=== PATIENT | female | born 1995 | race Caucasian/White ===

== ENCOUNTER 2020-04-09 16:17 | Inpatient (IN) | payer OTHER ==
[~2020-04-09] VITALS: Ht 160 cm
[2020-04-09] VITALS (7 sets, daily range): BP systolic 112–132; BP diastolic 69–90
[~2020-04-09 16:17] MED LIST: AUGMENTIN 875 M1 TAB PO; MOTRIN400 MG PO
[2020-04-09 17:59] LABS: BASO # 0.1 10*3/uL (0.0-0.1); BASO % 0.5 % (0.0-1.0); EOS % 0.3 % (1.0-4.0); HEMATOCRIT 39.2 % (37.0-47.0); LYMPH # 1.7 10*3/uL (1.3-4.4); LYMPH % 17.5 % (27.0-41.0); MEAN CELL VOLUME 87.5 fl (81.0-99.0); MEAN CORPUSCULAR HGB 29.7 pg (27.0-31.0); MEAN CORPUSCULAR HGB CONC 33.9 g/dl (33.0-37.0); MEAN PLATELET VOLUME 9.6 fl (9.6-12.3); MONO # 0.4 10*3/uL (0.1-1.0); MONO % 4.3 % (3.0-9.0); NEUT # 7.4 10*3/uL (2.3-7.9); NEUT % 77.1 % (47.0-73.0); PLATELET COUNT AUTOMATED 292 10*3/uL (130-400); RED BLOOD COUNT 4.48 10*6/uL (4.10-5.10); RED CELL DISTRI WIDTH 11.4 % (0-14.5); WHITE BLOOD COUNT 9.6 10*3/uL (4.8-10.8)
[2020-04-09] MEDS ORDERED: OMNICEF300 MG PO (18:02)
[2020-04-09 18:10] LABS: ACT PARTIAL THROMBO TIME 29.3 SECONDS (20.0-32.1); INTERNATIONAL NORM RATIO 0.9 (2.0-3.5)
[2020-04-09 18:15] LABS: ALKALINE PHOSPHATASE 54 U/L (45-117); BUN 11 mg/dl (7-24); CHLORIDE 110 mmol/L (98-107); CREATININE 0.59 mg/dL (0.55-1.02); POTASSIUM 3.6 mmol/L (3.5-5.1); SGOT/AST 7 IU/L (3-35); SGPT/ALT 11 U/L (12-78); SODIUM 142 mmol/L (136-145); TOTAL PROTEIN 7.6 gm/dL (6.4-8.2)
[2020-04-09 18:17] LABS: BETA-HCG, QUANT < 1.0 mIU/mL (1-3)
--- NOTE | 2020-04-09 18:25 | NUR ---
TOOK REPORT FROM MOISE RAMIRES AT THIS TIME. PATIENT TO BE CONSCIOUSLY SEDATED IN ROOM 1.
--- NOTE | 2020-04-09 18:30 | NUR ---
ASSISTED RN AND DETECTIVE SUPERVISOR AT BEDSIDE WITH A CONSCIOUS SEDATION, X30MIN. NO COMPS.
--- NOTE | 2020-04-09 18:40 | NUR ---
PATIENT HAS SIGNED CONSCIOUS SEDATION FORM AND IT HAS BEEN PLACED IN BOX WITH PATIENT CHART.
--- NOTE | 2020-04-09 18:42 | NUR ---
PATIENT BEING HYPEROXYGENATED AT THIS TIME WITH NON REBREATHER AT 15L/MIN. PATIENT ALSO PLACED ONTO DIRECTOR OF ADMISSIONS. RESP IN ROOM. AWAITING FOR DR VALLE.
--- NOTE | 2020-04-09 18:55 | NUR ---
10MG OF ETOMIDATE GIVEN IV PUSH. 10MG OF ETOMIDATE WAS GIVEN PRIOR TO SEDATIOJN SEE EMAR.
--- NOTE | 2020-04-09 18:58 | NUR ---
PATIENT IS AWAKE AT THIS TIME. TOLERATED PROCEDURE WELL. PATIENT DENIES ANY PAIN AT THIS TIME.
--- NOTE | 2020-04-09 19:00 | NUR ---
PULSES PALPATED BY LILA SOTELO AT THIS TIME.
--- NOTE | 2020-04-09 19:50 | NUR ---
PT ARRIVED TO FLOOR FROM ER, IV NS BOLUS INFUSING PER ORDER TO 20G LAC.
[2020-04-09 19:59] LABS: BILIRUBIN NEGATIVE; BLOOD NEGATIVE (NEGATIVE); CLARITY CLEAR (CLEAR); COLOR YELLOW (YELLOW); GLUCOSE NEGATIVE; KETONE NEGATIVE; LEUKO ESTERASE NEGATIVE (NEGATIVE); NITRITE NEGATIVE (NEGATIVE); PH 7.5 (4.5-8.0); SPECIFIC GRAVITY 1.005 (1.001-1.030); UROBILINOGEN 0.2 E.U./dl (0.0-1.0)
--- NOTE | 2020-04-09 20:00 | NUR ---
A 25, admitted to , under the services of ZHANG Cadena DO with a diagnosis of INTRACTABLE PAIN, CLOSE L ANKLE FX. Chief complaint is PAIN TO L LEG. Patient arrived via bed from ER. Monitor applied. Initial assessment completed. Vital signs taken and recorded. ZHANG CADENA DO notified of admission to the unit. Orders received. See assessment for past medical history, medications and allergies. Patient and/or family oriented to unit. [facility] visitation policy reviewed. Clothing/patient valuable form completed. JOHN JENNINGS
--- NOTE | 2020-04-09 20:03 | NUR ---
PT MEDICATED WITH PRN MORPHINE PER ORDER FOR C/O LEFT ANKLE PAIN RATED AN 8/10. WILL MONITOR FOR EFFECTIVENESS.
[2020-04-09] MEDS ORDERED: AFIRMELLE-28 T1 EACH PO (20:16)
[2020-04-09 20:20] LABS: RBC 0-2 rbc/hpf (0-2)
[2020-04-09 20:21] LABS: BACTERIA 2+; EPITHELIAL CELLS 0-2; WBC 0-2 wbc/hpf (0-5)
--- NOTE | 2020-04-09 20:40 | NUR ---
PT RESTING IN BED QUIETLY AT THIS TIME. NO S/S OF DISTRESS NOTED. PRN MORPHINE APPEARS EFFECTIVE.
--- NOTE | 2020-04-09 21:55 | NUR ---
PT REPORTS 7/10 PAIN TO LLE, REPOSIITIONS TO LITTLE EFFECT, NORCO GIVEN. SEE EMAR.
--- NOTE | 2020-04-09 23:11 | NUR ---
Pt instructed on incentive spirometer use. Encouraged pt to use 10 breaths every hour. 1500cc Pt on room air
[2020-04-10] VITALS (10 sets, daily range): BP systolic 99–125; BP diastolic 58–81
--- NOTE | 2020-04-10 01:00 | NUR ---
PT RESTING IN BED, NO DISTRESS NOTED. CALL LIGHT WITHIN REACH. WILL CONTINUE TO MONITOR.
--- NOTE | 2020-04-10 04:37 | NUR ---
PT REQUESTING SOMETHING FOR 8/10 LLE PAIN, PRN MORPHINE GIVEN PER ORDER. SEE EMAR.
--- NOTE | 2020-04-10 05:30 | NUR ---
PT REPORTS MORPHINE EFFECTIVE.
[2020-04-10 06:35] LABS: BASO % 0.6 % (0.0-1.0); EOS % 0.4 % (1.0-4.0); HEMATOCRIT 35.2 % (37.0-47.0); LYMPH # 2.1 10*3/uL (1.3-4.4); LYMPH % 29.3 % (27.0-41.0); MEAN CELL VOLUME 88.9 fl (81.0-99.0); MEAN CORPUSCULAR HGB 30.1 pg (27.0-31.0); MEAN CORPUSCULAR HGB CONC 33.8 g/dl (33.0-37.0); MEAN PLATELET VOLUME 9.7 fl (9.6-12.3); MONO # 0.7 10*3/uL (0.1-1.0); MONO % 9.5 % (3.0-9.0); NEUT # 4.4 10*3/uL (2.3-7.9); NEUT % 59.9 % (47.0-73.0); PLATELET COUNT AUTOMATED 238 10*3/uL (130-400); RED BLOOD COUNT 3.96 10*6/uL (4.10-5.10); RED CELL DISTRI WIDTH 11.3 % (0-14.5); WHITE BLOOD COUNT 7.3 10*3/uL (4.8-10.8)
[2020-04-10 06:38] LABS: ALBUMIN 3.1 gm/dl (3.1-4.5); CHLORIDE 114 mmol/L (98-107); POTASSIUM 3.4 mmol/L (3.5-5.1); SODIUM 140 mmol/L (136-145)
[2020-04-10 06:45] LABS: ALKALINE PHOSPHATASE 46 U/L (45-117); BUN 7 mg/dl (7-24); CHOLESTEROL 104 mg/dL (<200); CREATININE 0.49 mg/dL (0.55-1.02); HDL CHOLESTEROL 60 mg/dl (40-60); LDL CHOLESTEROL 37 mg/dL (9-159); SGOT/AST 14 IU/L (3-35); SGPT/ALT 12 U/L (12-78); TOTAL PROTEIN 6.2 gm/dL (6.4-8.2); TRIGLYCERIDES 34 mg/dl (<150); VLDL CHOLESTEROL 7 mg/dL (6-40)
--- NOTE | 2020-04-10 08:06 | NUR ---
24 HR chart check completed.
[2020-04-10 08:10] LABS: VITAMIN D, 25-HYDROXY 26.2 ng/mL (30-100)
--- NOTE | 2020-04-10 08:26 | NUR ---
MEDICATED WITH IV MORPHINE ORDERED PER PT REQUEST FOR C/O PAIN TO LEFT LEG RATED 8/10.
--- NOTE | 2020-04-10 09:00 | NUR ---
case management attempted to visit with patient, patient out of room for surgery, will visit at a later time
--- NOTE | 2020-04-10 09:30 | NUR ---
MEDICATION EFFECTIVE FOR PAIN.
--- NOTE | 2020-04-10 11:43 | NUR ---
Luis from [facility] called asking for clinicals to start insurance. . Clinicals faxed.
--- NOTE | 2020-04-10 14:17 | NUR ---
REQUESTED COMPRESSION SLEEVE AND SCD'S OFF DURING SURGERY.
--- NOTE | 2020-04-10 15:30 | NUR ---
RESTING COMFORTABLY. LEFT LEG FIXATOR INTACT, DRESSING D/I.
--- NOTE | 2020-04-10 17:00 | NUR ---
DENIES THE NEED FOR PAIN MED AT THIS TIME.
--- NOTE | 2020-04-10 21:05 | NUR ---
PT RESTING IN BED. RESP-EASY AND REGULAR. C/O LEFT LEG/ANKLE PAIN, RATES PAIN 8 ON PAIN SCALE 0-10. MEDICATED WITH MORPHINE IV PER PRN ORDER, SEE EMAR. PT USING INCENTIVE SPIROMETER WHILE IN ROOM. CALL LIGHT IN REACH. IVF INFUSING WITH NO PROBLEM. CALL LIGHT IN REACH. SEE SHIFT ASSESSMENT.
--- NOTE | 2020-04-10 22:00 | NUR ---
PT RESTING IN BED WITH HOB ELEVATED. STATES PAIN WAS EFFECTIVE. CALL LIGHT IN REACH. LEFT FOOT ELEVATED ON PILLOW.
[2020-04-11] VITALS: BP 115/79
--- NOTE | 2020-04-11 00:20 | NUR ---
PT RESTING IN BED. RESP-EASY AND REGULAR. NO C/O AT THIS TIME. CALL LIGHT IN REACH. SEE SHIFT ASSESSMENT.
--- NOTE | 2020-04-11 03:29 | NUR ---
C/O LEFT LEG/FOOT PAIN, RATES PAIN 8 ON PAIN SCALE 0-10. MEDICATED WITH MORPHINE IV PER PRN ORDER, SEE EMAR. LEFT FOOT ELEVATED. TOES WARM TO TOUCH, PT ABLE TO MOVE TOES. CALL LIGHT IN REACH.
--- NOTE | 2020-04-11 04:20 | NUR ---
PT RESTING IN BED. STATES PAIN MEDICATION WAS EFFECTIVE. CALL LIGHT IN REACH. LEFT FOOT UP ON PILLOW.
[2020-04-11 06:59] LABS: BILIRUBIN, DIRECT 0.3 mg/dL (0.0-0.2)
--- NOTE | 2020-04-11 07:43 | NUR ---
24 HR chart check completed.
[2020-04-11 08:00] VITALS: BP 122/73
--- NOTE | 2020-04-11 08:45 | NUR ---
MEDICATED WITH IV MORPHINE ORDER PER PT REQUEST FOR C/O PAIN TO LEFT LOWER LEG S/P ORIF YESTERDAY RATED 04/20.
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
--- NOTE | 2020-04-11 09:57 | NUR ---
MEDICATION NOT EFFECTIVE PT WAS JUST UP WITH PT. REQUESTING ADDITIONAL MEDICATION.
--- NOTE | 2020-04-11 10:00 | NUR ---
MEDICATED WITH PO NORCO ORDERED PER PT REQUEST FOR C/O LOWER LEFT LEG PAIN RATED 9/10.
--- NOTE | 2020-04-11 10:42 | NUR ---
PHYSICAL THERAPY Physical Therapy evaluation completed on 4th floor with full evaluation to follow. Recommend physical therapy per plan of care and Home w family support and follow up HH upon discharge. Thank you for this referral. Anthony Powell SPT Kimber Kinney PT
--- NOTE | 2020-04-11 11:00 | NUR ---
MEDICATION EFFECTIVE FOR PAIN.
[2020-04-11 12:00] VITALS: BP 102/65
--- NOTE | 2020-04-11 12:41 | NUR ---
MEDICATED WITH IV BENEDRYL ORDERED FOR VOMITING IN RADIOLOGY.
--- NOTE | 2020-04-11 13:48 | NUR ---
MEDICATED WITH PO NORCO ORDERED PER PT REQUEST FOR C/O PAIN TO LLE RATED 8/10.
--- NOTE | 2020-04-11 14:15 | NUR ---
PHYSICAL THERAPY TREATMENT TIME: OUT 2:14 PM 15 MINUTES TOTAL PRESENTATION: Patient with ORIF external fixation device on L LE. Patient has minimal pain level in L LE. Edema in L LE and L Foot Patient is bedside chair with IV infusing LEs elevated LE on pillow NWB on L LE COMPLAINTS: Patient says she has minimal to no pain in the L LE. TRANSFERS: STS from bedside low chair: SBA-CGA Stand to sitting in bedside chair: SBA-CGA No verbal cues necessary TREATMENT: Patient performed gait with Wh Walker and CGA to Close Supervision for 56' x 1, maintaining the NWB on the L LE the entire distance. No LOB 1 standing rest break during gait < Seconds Mild SOB Ther ex to the R LE in long sitting in bedside chair L LE - SLR, HEEL SLIDES, HIP ABDUCTION, ANKLE PUMPS X 10 reps each RESPONSE/COMPLAINTS: Patient able to use regular Wh Walker and has no need for Farzad WALKER. Patient is able to maintain NWB on the L LE with Walker. Patient has moderate increased pain with gait. Mild fatigue and Mild SOB with gait. CONCLUSION: Patient SHoulder have ramp to enter and exit home while on the NWB precautions of the L LE. Patient was left in bedside chair with LEs elevated Call light within reach IV infusing [employer] [employer] SALESPERSON
[2020-04-11] MEDS ORDERED: ASPIRIN ADULT L81 M2 PO (14:42)
[2020-04-11] MEDS ORDERED: NORCO 5-325 TA1 EACH PO (14:43)
--- NOTE | 2020-04-11 15:00 | NUR ---
MEDICATION EFFECTIVE FOR PAIN.
--- NOTE | 2020-04-11 15:15 | NUR ---
UNABLE TO PHOTO SURGICAL WOUND D/T DRESSING/APPLIANCE.
[2020-04-11 16:00] VITALS: BP 108/68
--- NOTE | 2020-04-11 16:54 | NUR ---
LEAVING IN CARE OF PA VIA WHEELCHAIR.
--- NOTE | 2020-04-12 16:45 | NUR ---
CALLED AND SPOKE TO MEGAN REGARDING HER WALKER RX. SHE STATED A FRIEND OF THE FAMILY WAS GETTING HER THE WALKER THAT SHE NEEDED AND DID NOT NEED FURTHER ASSISTANCE WITH THAT. IN REGARDS TO THE SOICAL SERVICE ORDER FOR DC PLANNING FROM DR BASS AND THE EXTENSIVE DRESSING ORDERS FROM HIM SHE DID STATE SHE WOULD PREFER TO HAVE A HOME NURSE ASSIST WITH THIS. SHE HAD NO PREFERENCE AND WAS OK WITH [facility] IF IN NETWORK WITH HER INSURANCE. I CALLED [facility] AT [phone] AND SPOKE WITH MARLENI. ORDERS FOR SN, PT, OT , DRESSING AND PIN CARE SENT TO [phone] WITH RETURN CONFIRMATION. IF NOT IN NETWORK, PER MARLENI THEY WILL EITHER FORWARD TO AN IN NETWORK PROVIDER OR CALL ME OR CASE MANAGEMNENT BACK IN THE MORNING.
== END 2020-04-11 17:34 | disposition home or self-care (01) | DRG 493 ==
LOC: ED 16:17 → EDHOLD 18:20 → 4E 18:20
PROVIDERS: Internal Medicine; Nurse Practitioner Family; ADMIT Family Medicine; ATTEND Family Medicine
PROC: 2W3RX1Z Immobilization of Left Lower Leg using Splint (ICD-10-PCS; principal; 2020-04-09)
PROC: 0QHH35Z Insertion of External Fixation Device into Left Tibia, Percutaneous Approach (ICD-10-PCS; 2020-04-10)
PROC: 0HBLXZZ Excision of Left Lower Leg Skin, External Approach (ICD-10-PCS; 2020-04-10)
PROC: 0QSH04Z Reposition Left Tibia with Internal Fixation Device, Open Approach (ICD-10-PCS; 2020-04-10)
DX: S82.852A Displaced trimalleolar fracture of left lower leg, initial encounter for closed fracture (principal); R17 Unspecified jaundice; R00.0 Tachycardia, unspecified; E87.8 Other disorders of electrolyte and fluid balance, not elsewhere classified; X58.XXXA Exposure to other specified factors, initial encounter; Z91.013 Allergy to seafood; Z83.3 Family history of diabetes mellitus; Y93.89 Activity, other specified; Y92.89 Other specified places as the place of occurrence of the external cause; Y99.8 Other external cause status

== ENCOUNTER → 2020-04-19 | Outpatient (CLI) | payer OTHER ==
[~2020-04-19] MED LIST changes: +AFIRMELLE-28 T1 EACH PO; +ASPIRIN ADULT L81 M2 PO; +NORCO 5-325 TA1 EACH PO; +OMNICEF300 MG PO
== END | disposition home or self-care (01) ==
LOC: COVID19 11:35
PROVIDERS: ATTEND Psychiatry & Neurology Psychiatry
DX: Z01.818 Encounter for other preprocedural examination (principal); S82.842A Displaced bimalleolar fracture of left lower leg, initial encounter for closed fracture; Z11.59 Encounter for screening for other viral diseases; X58.XXXA Exposure to other specified factors, initial encounter; Y93.89 Activity, other specified; Y92.89 Other specified places as the place of occurrence of the external cause; Y99.8 Other external cause status

== ENCOUNTER → 2020-04-19 | Outpatient (CLI) | payer OTHER | END | disposition home or self-care (01) | LOC: ORTHO 00:40 | PROVIDERS: ATTEND Psychiatry & Neurology Psychiatry | DX: S82.302A Unspecified fracture of lower end of left tibia, initial encounter for closed fracture (principal); S82.402A Unspecified fracture of shaft of left fibula, initial encounter for closed fracture; X58.XXXA Exposure to other specified factors, initial encounter; Y93.89 Activity, other specified; Y92.89 Other specified places as the place of occurrence of the external cause; Y99.8 Other external cause status ==

== ENCOUNTER → 2020-04-21 | Day surgery (SDC) | payer OTHER ==
[2020-04-20 12:36] VITALS: BP 122/85
[~2020-04-21] VITALS: Ht 157.4 cm; Wt 58.1 kg
[2020-04-21 10:27] VITALS: BP 150/90
[2020-04-21 15:21] VITALS: BP 117/73
[2020-04-21 15:35] VITALS: BP 123/72
[2020-04-21 15:50] VITALS: BP 120/76
[2020-04-21 16:05] VITALS: BP 110/72
[2020-04-21 16:20] VITALS: BP 114/73
== END | disposition home or self-care (01) ==
LOC: SDC 04-20 08:45
PROVIDERS: ATTEND Psychiatry & Neurology Psychiatry
DX: S82.872A Displaced pilon fracture of left tibia, initial encounter for closed fracture (principal); S82.842A Displaced bimalleolar fracture of left lower leg, initial encounter for closed fracture; X58.XXXA Exposure to other specified factors, initial encounter; Y93.89 Activity, other specified; Y92.89 Other specified places as the place of occurrence of the external cause; Y99.8 Other external cause status; Z88.8 Allergy status to other drugs, medicaments and biological substances

== ENCOUNTER → 2020-05-05 | Outpatient (CLI) | payer OTHER | END | disposition home or self-care (01) | LOC: ORTHO 02:52 | PROVIDERS: ATTEND Psychiatry & Neurology Psychiatry | DX: S82.872D Displaced pilon fracture of left tibia, subsequent encounter for closed fracture with routine healing (principal); X58.XXXD Exposure to other specified factors, subsequent encounter ==

== ENCOUNTER → 2020-06-02 | Outpatient (CLI) | payer OTHER | END | disposition home or self-care (01) | LOC: ORTHO 00:19 | PROVIDERS: ATTEND Orthopaedic Surgery | DX: S82.872D Displaced pilon fracture of left tibia, subsequent encounter for closed fracture with routine healing (principal); X58.XXXD Exposure to other specified factors, subsequent encounter ==

== ENCOUNTER → 2020-07-12 | Outpatient (CLI) | payer OTHER | END | disposition home or self-care (01) | LOC: ORTHO 00:32 | PROVIDERS: ATTEND Orthopaedic Surgery | DX: S82.872D Displaced pilon fracture of left tibia, subsequent encounter for closed fracture with routine healing (principal); X58.XXXD Exposure to other specified factors, subsequent encounter ==

== ENCOUNTER → 2020-10-11 | Outpatient (CLI) | payer OTHER | END | disposition home or self-care (01) | LOC: ORTHO 00:39 | PROVIDERS: ATTEND Orthopaedic Surgery | DX: S82.872D Displaced pilon fracture of left tibia, subsequent encounter for closed fracture with routine healing (principal); X58.XXXD Exposure to other specified factors, subsequent encounter ==

== ENCOUNTER → 2021-04-13 | Outpatient (CLI) | payer OTHER | END | disposition home or self-care (01) | LOC: ORTHO 01:40 | PROVIDERS: ATTEND Orthopaedic Surgery | DX: S82.872D Displaced pilon fracture of left tibia, subsequent encounter for closed fracture with routine healing (principal); X58.XXXD Exposure to other specified factors, subsequent encounter ==